=== PATIENT | male | born 1950 | race Caucasian/White ===

== ENCOUNTER 2025-02-28 08:03 | Emergency (ER) | payer MEDICARE, OTHER, SELFPAY ==
[2025-02-28 08:06] VITALS: BP 140/69
--- NOTE | 2025-02-28 08:46 | ED.GENMED ---
History of Present Illness
General
Chief Complaint: Back Pain
Time Seen by Provider: 02/28/25 08:26
History of Present Illness
History of Present Illness:
Patient is a 74-year-old male with past medical history of hypertension and hyperlipidemia here today for evaluation of several hours of atraumatic right thoracic paraspinal pain. Prior to symptom onset he does report having an episode of chest
pain but this shortly self resolved after the patient coughed and cleared his chest. The chest pain has since resolved but he still endorses the back pain. No falls or injuries. No numbness or tingling. No difficulty breathing. No fevers. No
vomiting. No abdominal pain. No other acute complaints.
Review of Systems
Review of Systems
All Other Systems: ROS reviewed and negative except as documented in HPI and ROS
Phy Exam
Physical Exam
Physical Exam:
GENERAL: Alert , in no apparent distress
EYE: no injection
NECK: Supple
ENT: o/p clr, mmm.
CARDIAC: Regular rate and rhythm .
LUNGS: Clear breath sounds bilaterally, no acute respiratory distress, no wheezes/rales/rhonchi
ABDOMEN: Soft, without focal tenderness, no r/g, no cvat
NEUROLOGICAL: Alert and oriented, no focal neuro deficits
SKIN: Warm and dry, skin intact.
MUSCULOSKELETAL: No edema, well perfused. Mild tenderness to palpation along the right thoracic paraspinal region
PSYCH: Normal and appropriate interaction.
Course
Orders/Labs/Results
Orders:
Orders
02/28/25 08:44
Acetaminophen [Tylenol] 1,000 mg PO NOW STA
CR Chest - 2 Views Urgent
Comment:
Reason For Exam: chest pain
02/28/25 08:45
Electrocardiogram (*1) Urgent
Reason for Study: Chest Pain
EKG- Treatment ONCE
Lidocaine [Lidocaine 4% Patch] 1 patch TOPICAL ONCE ONE
Apply Lidocaine patch(s) to:: right thoracic paraspinal region
02/28/25 08:48
Thoracic Spine 3 Views CR [CR Thoracic Spine 3 Views] Urgent
Comment:
Reason For Exam: thoracic back pain, right side
02/28/25 09:32
Basic Metabolic Panel Urgent
Complete Blood Count/With Diff Urgent
Troponin I Urgent
02/28/25 10:57
CT Chest With Iv Contrast Urgent
Comment:
Reason For Exam: abnormal right upper lobe finding
Abnormal Lab Results
02/28/25
09:32
WBC 11.1 H 10^3/uL
(4.8-10.8)
RBC 3.64 L 10^6/uL
(4.70-6.10)
Hgb 11.7 L g/dL
(13.0-18.0)
Hct 32.6 L %
(39.0-52.0)
MCH 32.1 H pg
(27.0-31.0)
Absolute Neuts (auto) 9.7 H 10^3/uL
(1.4-6.5)
Absolute Lymphs (auto) 0.6 L 10^3/uL
(1.2-3.4)
Absolute Monos (auto) 0.8 H 10^3/uL
(0.1-0.6)
Neutrophils % 86.9 H %
(42.2-75.2)
Lymphocytes % 5.0 L %
(20.5-51.1)
Sodium 132 L mmol/L
(135-145)
Glucose 128 H mg/dl
(70-99)
02/28/25 09:32
02/28/25 09:32
Vital Signs
Initial and Last Documented VS:
Initial Vital Signs
Temp Pulse Resp BP Pulse Ox
99.1 F 85 16 140/69 98
02/28/25 08:06 02/28/25 08:06 02/28/25 08:06 02/28/25 08:06 02/28/25 08:06
Last Documented Vital Signs
Temp Pulse Resp BP Pulse Ox
99.1 F 62 17 120/59 97
02/28/25 08:06 02/28/25 11:48 02/28/25 11:48 02/28/25 11:48 02/28/25 11:48
MDM/Problems Addressed
Differential Diagnosis Includes:
Patient is a 74-year-old male with past medical history of hypertension and hyperlipidemia here today for evaluation of several hours of atraumatic right thoracic paraspinal pain. Overall, patient appears very well. Vitals remarkable for a mildly
elevated blood pressure. Physical examination described above. On examination the patient has mild tenderness to palpation along the right thoracic paraspinal region. There are no deformities. No rashes. He has a normal cardiopulmonary
examination. Given report of chest pain and age/risk factors we will begin with a cardiac workup with EKG, chest x-ray, and screening labs. Will also obtain imaging of the thoracic spine and provide topical lidocaine patches and Tylenol.
Symptoms/findings at this time most consistent with a muscular etiology. Low suspicion for ACS however workup will be initiated. Patient has no ripping or tearing pain. No persistent chest pain. No abdominal pain. He is not significantly
hypertensive. He appears very well overall. Do not suspect aortic dissection.
02/28/25 12:30: Labs reveal leukocytosis to 11.1. Mild anemia with a hemoglobin 11.7. Sodium 132. Glucose 128. Thoracic spine x-rays reveal degenerative changes. Chest x-ray was ordered and followed by chest CT as there is findings suggestive of
pneumonia versus pulmonary mass. Patient made aware. We will empirically cover for pneumonia with antibiotics. We discussed primary care follow-up and repeat outpatient imaging to ensure this is not a mass and rather infectious pathology.
Patient voiced understanding. He appears well and stable for discharge. All questions answered
*Pulse Oximetry
SaO2: 98
Oxygen Mode of Delivery: Room air
Patient hypoxic: no
*Critical Care Note
Total Time (30-74mins, 75-104mins- exclusive of procedures): Not Applicable
ED Attending Note
-
Portions of this chart may have been created with voice recognition software.� Occasional wrong word or��sound alike� substitutions may have occurred due to the inherent limitations of voice recognition software.
Discharge Plan
Departure
Patient Disposition: Home (Routine Discharge)
Date of Disposition: 02/28/25
Time of Disposition: 12:25
Patient with high blood pressure during this ER visit?: Yes
Condition: Good
Discharge Problem:
Upper back pain on right side, Pneumonia, Abnormal CT scan
Instructions: Pneumonia in adults - Discharge instructions
Prescriptions:
New
amoxicillin-pot clavulanate 875-125 mg tablet
1 tab PO Q12H 7 Days Qty: 14 0RF
azithromycin [Zithromax] 250 mg tablet
See Rx Instructions .ROUTE .COMPLEX Qty: 6 0RF
Rx Instructions:
Take 2 tablets day 1
Take 1 tablet days 2-5
Referrals:
PRIVATE,PHYSICIAN [Family Provider, Internal Medicine] - Follow up in 2-3 days
Hakeem Rojas MD [Active, Pulmonary Medicine] - Follow up in 1 week
Stand Alone Forms: Return to Work
Activity Restrictions/Additional Instructions:
You were seen today for evaluation of right upper back pain.
Your blood work reveals an elevated white blood cell count of 11.1 thousand and mild anemia with a hemoglobin of 11.7 thousand. Your sodium is mildly decreased to the 132. Your glucose is mildly elevated at 128.
We obtained an x-ray of your thoracic spine which reveals degenerative changes. We obtained a chest x-ray and CAT scan of your chest which reveals the following findings:
IMPRESSION:
Rounded pneumonia in the right upper lobe versus a pulmonary mass. Clinical and laboratory correlation recommended. Repeat exam in a couple weeks after treatment for pneumonia is recommended to confirm improvement or resolution.
Small pleural-based pulmonary nodule in the right lower lobe. Continued surveillance recommended. Too small for PET imaging. The [facility] Pulmonary Nodule Advisory Board will be automatically informed of the findings.
Begin the oral antibiotics as directed.
Please follow-up with your family doctor within the next 2 to 3 days for close reevaluation. We also recommend following up with a bradder (lung doctor).
Return for any new, worsening, or concerning symptoms.
Interventions
Interventions:
*Risk Screen - Suicide Last Done: 02/28/25 08:06
*General Assessment Last Done: 02/28/25 08:06
*Neglect/Abuse Screening Last Done: 02/28/25 09:25
*ED- Fall Risk Assessment Last Done: 02/28/25 09:25
*ED COVID-19 Vaccine History Last Done: 02/28/25 09:25
ED-Musculoskeletal Assessment Last Done: 02/28/25 09:25
Discharge Date and Time
Print Language: ARMENIAN
[2025-02-28] MEDS: TYLENOL 1000 MG PO (09:34)
[2025-02-28] MEDS: LIDOCAINE 4% PATCH 1 PATCH TOPICAL (09:34)
[2025-02-28 09:45] LABS: Hematocrit 32.6 % (39.0-52.0); Hemoglobin 11.7 g/dL (13.0-18.0); Mean Corp Hgb Conc. 35.9 g/dL (33.0-37.0); Mean Corpuscular Volume 89.6 fL (80.0-94.0); Nucleated Red Blood Cells % 0 % (-); Platelet Count 260 10^3/uL (130-400); Red Cell Dist. Width 11.8 % (11.5-14.5)
[2025-02-28 10:00] LABS: Blood Urea Nitrogen 20 mg/dl (9-20); Calcium 10.0 mg/dl (8.4-10.2); Carbon Dioxide 25 mmol/L (22-30); Chloride 99 mmol/L (98-107); Glucose 128 mg/dl (70-99); Potassium 4.2 mmol/L (3.5-5.1); Sodium 132 mmol/L (135-145); eGFR > 60.00
[2025-02-28 10:24] LABS: Troponin I < 0.012 ng/ml
[2025-02-28 11:48] VITALS: BP 120/59
[2025-02-28 13:19] VITALS: BP 123/79
== END 2025-02-28 13:21 | disposition home or self-care (01) ==
LOC: EMR 08:03
PROVIDERS: Physician Assistant; EMERGENCY PHYSICIAN Emergency Medicine
DX: M54.6 Pain in thoracic spine (principal); J18.9 Pneumonia, unspecified organism; R94.8 Abnormal results of function studies of other organs and systems; I10 Essential (primary) hypertension; E78.00 Pure hypercholesterolemia, unspecified
CPT/HCPCS: 99284; 71046; 71260; 72072; 80048; 84484; 85025; 93005; Q9967